=== PATIENT | male | born 1965 | race Caucasian/White ===

== ENCOUNTER 2017-01-29 07:13 | Day surgery (SDC) | payer BC ==
[2017-01-29] MEDS ORDERED: Sodium Chloride 0.9% 10 ML Syringe FLUSH PRN (07:15)
[2017-01-29] MEDS ORDERED: Lactated Ringers 1,000 ML IV SCH (07:15)
--- NOTE | 2017-01-29 09:11 | PCM.OPNOTE ---
- General Post-Op/Procedure Note Date of Surgery/Procedure: 01/29/17 Operative Procedure(s): c scope with bx Findings: hyperplastic polyp in rectum Pre Op Diagnosis: llq abd pain Post-Op Diagnosis: hyperplastic polyp in rectum Anesthesia Technique: MAC Primary Surgeon: Abdoulaye Isidro Anesthesia Provider: Mary Lou Hensley Pathology: hyperplastic polyp in rectum Complications: None Condition: Good Free Text/Narrative:: see dictation
[2017-01-29] MEDS ORDERED: Propofol 200 MG/20 ML SDV IV ONE (09:40)
[2017-01-29] MEDS ORDERED: Midazolam 1 MG/ML 2 ML SDV IV ONE (09:40)
[2017-01-29 10:50] VITALS: BP 128/81
--- NOTE | 2017-01-29 12:43 | OR ---
DATE OF OPERATION: 01/29/2017 SURGEON: Abdoulaye Isidro MD PROCEDURE PERFORMED: Colonoscopy with cold forceps biopsy. PREOPERATIVE DIAGNOSIS: Left lower quadrant abdominal pain. POSTOPERATIVE DIAGNOSIS: Hyperplastic polyp of the rectum. INDICATIONS: This is a 51-year-old white male, who has a longstanding history of left-sided abdominal pain and testicular pain. He has never had a colonoscopy. He was offered and accepted the same. DESCRIPTION OF PROCEDURE: After an excellent IV sedation was administered, a digital rectal exam was performed. No marked abnormality was noted. Flexible colonoscope was inserted and advanced to the cecum without difficulty. The following findings were noted. Ascending colon, unremarkable. Transverse colon, unremarkable. Descending colon, unremarkable. Sigmoid, unremarkable. Rectum, a small hyperplastic appearing lesion, biopsied with cold biopsy forceps and sent for permanent. Colon was deflated. The scope was removed. The patient tolerated the procedure well, and was taken to recovery in good condition. /[id number] KASI/CHUNG
[2017-01-29] MEDS ORDERED: Iopamidol 755 MG/ML 150 ML Bottle IV ONE (12:54)
--- NOTE | 2017-01-29 15:08 | CT ---
INDICATION: Left lower quadrant pain. Colonoscopy today, negative. CT ABDOMEN AND PELVIS WITH CONTRAST: Spiral 2.5-mm axial sections were obtained through the abdomen and pelvis with oral and IV contrast (114 mL Isovue -370 at 2.5 mL per second), with sagittal and coronal reconstructions, 2016. These are compared with 02/14/2016 examination Total Exam DLP = 1079.20 mGy-cm. The lower lung mluler and pleural spaces visualized appear normal, except to note a very minimal scar in the left lower lobe at the lung base. The heart appeared normal in size. There are again noted a few scattered very tiny low-density lesions in the liver , most likely representing very tiny cystic structures. They appear to be essentially unchanged from the previous study. No definite gallstones are demonstrated. The common bile duct is normal in caliber. The adrenal glands were unremarkable. At the upper pole of the left kidney, there is noted a cystic mass, somewhat irregular in shape, mostly cortical, extending into the medullary area and having the appearance of a dilated infundibulum and calyx, with an area of overlying cortical scarring of the posterolateral left kidney upper pole. This appears unchanged from the previous examination. The kidneys were otherwise unremarkable. The ureters appear to be fairly normal in course and caliber, as visualized. The appendix is not definitely visualized. The prostate appeared enlarged, measuring 61 x 35 x 43 mm in craniocaudad, anteroposterior, and transverse orientations. Calcifications are noted in the prostate additionally. There is some relative thickening of the urinary bladder wall, which may be slightly increased compared with the previous study and may represent either trabeculation or cystitis and should be correlated clinically. There appears to be slight thickening of the wall of the rectum and rectosigmoid , raising question of a mild degree of colitis. This should be correlated clinically. No evidence of bowel obstruction was seen. Calcification in arteries is minimal. The spleen and pancreas appeared normal except to note a tiny low-density area in the body - tail of the pancreas, essentially unchanged compared with the previous study, allowing for a difference in slice thickness. Better definition has been obtained on the current study. No evidence of significant retroperitoneal mass could be identified. Again noted is a retroaortic position of the left renal vein. No additional mass lesions, organomegaly, or free fluid collections were identified in the abdomen or pelvis. No left lower quadrant abnormality was identified to strongly suggest an etiology for the patient's left lower quadrant pain. What appears to be the appendix appeared normal - see image #119 axial. IMPRESSION: 1. An appearance of some thickening of the wall of the rectosigmoid and rectum of questionable etiology. Question the possibility of ulcerative colitis. This should be correlated clinically with the history of recent colonoscopy. 2. No specific abnormality identified to strongly suggest an etiology for the patient's left lower quadrant pain. 3. Area of scarring with cystic enlargement of an upper pole infundibulum and calyx in the left kidney - unchanged. 4. 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 5. Tiny low-density lesions in the liver, essentially unchanged, most likely representing tiny cysts likely of benign origin, especially since they are unchanged. 6. Minimal ASD. 7. Tiny low-density lesion in the body - tail area of the pancreas, unchanged and likely of benign origin - most likely a tiny cyst or fatty lesion. 8. Thickening of the urinary bladder wall is noted, perhaps slightly increased compared with the previous study - correlate clinically as to etiology. 9. Prostatic enlargement with minimal impingement on the floor of the urinary bladder. CT PELVIS: Examination of the pelvis was obtained by CT, as noted above. The appendix appeared normal. Somewhat prominent - thickened wall of the rectum and rectosigmoid is noted, which should be correlated clinically. Also noted is prostatic enlargement. Thickening of the urinary bladder wall was also seen. Report faxed to Dr. Isidro on 01/29/2017 at 1510 hours. [facility]
== END 2017-01-29 11:00 | disposition home or self-care (01) ==
LOC: FB.SDS 07:13
PROVIDERS: ATTEND Surgery
DX: K62.1 Rectal polyp (principal); N18.9 Chronic kidney disease, unspecified; K21.9 Gastro-esophageal reflux disease without esophagitis; Z98.890 Other specified postprocedural states; Z98.52 Vasectomy status; Z87.891 Personal history of nicotine dependence
CPT/HCPCS: 36415; 45380; 74177; 80048; 88305; J2250; J2704; J7120; Q9967

== ENCOUNTER 2021-01-22 19:56 | Emergency (ER) | payer BC ==
[2021-01-22] MEDS ORDERED: Cephalexin 500 MG Cap PO ONE (19:57)
--- NOTE | 2021-01-22 21:05 | ER ---
DATE SEEN: 01/22/2021 CHIEF COMPLAINT: Laceration. HISTORY OF PRESENT ILLNESS: A 55-year-old male who cut his finger while cutting meat at home in his garage. PAST MEDICAL HISTORY: He is healthy. Last tetanus was last year July. PHYSICAL EXAMINATION: VITAL SIGNS: Unremarkable. EXTREMITIES: Left index showed pulp laceration with active bleeding. Most of the fingernail I would say 75% is cut off. IMPRESSION: Finger laceration. PLAN: I obtained a digital block and placed 6 stitches to achieve hemostasis. Tetanus was addressed. The patient will go home with cephalexin for prophylaxis. Remove stitches in 7 days. /[id number] GERTRUDIS/CHUNG
[2021-01-22 23:26] VITALS: BP 138/92; PULSE 66
--- NOTE | 2021-01-30 14:11 | ER ---
DATE SEEN: 01/22/2021 ADDENDUM: Please note that the length of the laceration was 2 cm in total. /[id number] GERTRUDIS/CHUNG
== END 2021-01-22 20:47 | disposition home or self-care (01) ==
LOC: FB.ED 19:56
DX: S61.211A Laceration without foreign body of left index finger without damage to nail, initial encounter (principal); W26.8XXA Contact with other sharp object(s), not elsewhere classified, initial encounter; Y92.009 Unspecified place in unspecified non-institutional (private) residence as the place of occurrence of the external cause
CPT/HCPCS: 12001; 99282-25; A9270-GY

== ENCOUNTER 2022-06-24 18:52 | Emergency (ER) | payer BC ==
[2022-06-24 19:20] VITALS: BP 190/94; PULSE 81
[2022-06-24] MEDS: Labetalol 20 MG/4 ML Syringe IVPUSH ONE (19:33)
[2022-06-24 19:45] LABS: ESTIMATED GFR 101 mL/min (>60)
== END 2022-06-24 20:02 ==
LOC: FB.ED 18:52
DX: H53.9 Unspecified visual disturbance (principal); I16.9 Hypertensive crisis, unspecified
CPT/HCPCS: 36415; 70450; 80053; 82947; 84484; 85025; 85610; 85730; 93005; 93010; 96374; 99285; 99285-25; J3490